=== PATIENT | male | born 1945 | race Caucasian/White ===

== ENCOUNTER 2018-01-18 09:25 | Emergency (ER) | payer MEDICARE ==
--- NOTE | 2018-01-18 09:44 | Emergency Department Record ---
History of Present Illness - General Chief Complaint: Hypertension Stated Complaint: HTN/FEVER Time Seen by Provider: 01/18/18 09:41 Source: Patient, RN notes reviewed Mode of Arrival: Wheelchair - History of Present Illness Initial Comments: fever and frequent urination with a fever last night and shakes last night and he lives alone. No vomiting and slight cough and that was three weeks ago. Onset/Timin -: Days(s) Timing: Unsure Description: Other History of Same: No History of Trauma: No Severity: Mild Improves With: Nothing Worsens With: Nothing - Related Data Home Medications Medication Instructions Recorded Confirmed Last Taken Aspirin [Aspirin EC] 81 mg PO DAILY 01/18/18 01/18/18 Unknown Atenolol 50 mg PO DAILY 01/18/18 01/18/18 Unknown Gemfibrozil [Lopid] 600 mg PO DAILY 01/18/18 01/18/18 Unknown Losartan Potassium 50 mg PO DAILY 01/18/18 01/18/18 Unknown Metformin HCl 500 mg PO DAILY 01/18/18 01/18/18 Unknown Rivaroxaban [Xarelto] 20 mg PO DAILY 01/18/18 01/18/18 Unknown Simvastatin 20 mg PO DAILY 01/18/18 01/18/18 Unknown Previous Rx's Medication Instructions Recorded Ciprofloxacin HCl [Cipro] 500 mg PO Q12HR #20 tablet 01/18/18 Allergies Allergy/AdvReac Type Severity Reaction Status Date / Time No Known Drug Allergies Allergy Verified 01/18/18 09:38 Travel Screening - Travel/Exposure Within Last 30 Days Have you traveled within the last 30 days?: No Review of Systems Reviewed: No additional complaints except as noted below Constitutional: Reports: As per HPI. Denies: Chills, Fever, Malaise, Night sweats, Weakness, Weight change Eyes: Reports: As per HPI. Denies: Eye discharge, Eye pain, Photophobia, Vision change ENT: Reports: As per HPI. Denies: Congestion, Dental pain, Ear pain, Epistaxis , Hearing loss, Throat pain Respiratory: Reports: As per HPI. Denies: Cough, Dyspnea, Hemoptysis, Stridor, Wheezes Cardiovascular: Reports: As per HPI. Denies: Arrhythmia, Chest pain, Dyspnea on exertion, Edema, Murmurs, Orthopnea, Palpitations, Paroxysmal nocturnal dyspnea, Rheumatic Fever, Syncope Endocrine: Reports: As per HPI. Denies: Fatigue, Heat or cold intolerance, Polydipsia, Polyuria Gastrointestinal: Reports: As per HPI. Denies: Abdominal pain, Constipation, Diarrhea, Hematemesis, Hematochezia, Melena, Nausea, Vomiting Genitourinary: Reports: As per HPI. Denies: Dysuria, Frequency, Hematuria, Incontinence, Retention, Testicular pain, Testicular mass, Urgency Musculoskeletal: Reports: As per HPI. Denies: Arthralgia, Back pain, Gout, Joint swelling, Myalgia, Neck pain Skin: Reports: As per HPI. Denies: Bruising, Change in color, Change in hair/ nails, Lesions, Pruritus, Rash Neurological: Reports: As per HPI. Denies: Abnormal gait, Confusion, Headache, Numbness, Paresthesias, Seizure, Tingling, Tremors, Vertigo, Weakness Psychiatric: Reports: As per HPI. Denies: Anxiety, Auditory hallucinations, Depression, Homicidal thoughts, Suicidal thoughts, Visual hallucinations Hematological/Lymphatic: Reports: As per HPI. Denies: Anemia, Blood Clots, Easy bleeding, Easy bruising, Swollen glands Past Medical History - SOCIAL HISTORY Smoking Status: Former smoker Alcohol Use: None Drug Use: None - CARDIOVASCULAR Hx Cardio Disorders: Yes Hx Abnormal EKG: Yes Hx Cardiac Cath: Yes Hx Hypertension: Yes - NEURO Hx Neuro Disorders: No - GI Hx GI Disorders: No - Hx Genitourinary Disorders: No - ENDOCRINE Hx Endocrine Disorders: Yes Hx Diabetes: Yes (type 2) - MUSCULOSKELETAL Hx Musculoskeletal Disorders: Yes Hx Arthritis: Yes - PSYCH Hx Psych Problems: No - HEMATOLOGY/ONCOLOGY Hx Hematology/Oncology Disorders: No Family Medical History Any Significant Family History?: Yes Hx Cancer: Father, Mother Physical Exam - General General Appearance: Alert, Oriented x3, Cooperative, No acute distress - Head Head exam: Normal inspection - Eye Eye exam: Normal appearance, PERRL Pupils: Normal accommodation - ENT ENT exam: Normal exam, Mucous membranes moist, Normal external ear exam, Normal orophraynx, TM's normal bilaterally Ear exam: Normal external inspection. negative: External canal tenderness Nasal Exam: Normal inspection. negative: Discharge, Sinus tenderness Mouth exam: Normal external inspection, Tongue normal Teeth exam: Normal inspection. negative: Dental caries Throat exam: Normal inspection. negative: Tonsillar erythema, Tonsillar exudate - Neck Neck exam: Normal inspection, Full ROM. negative: Tenderness - Respiratory Respiratory exam: Normal lung sounds bilaterally. negative: Respiratory distress - Cardiovascular Cardiovascular Exam: Regular rate, Normal rhythm, Normal heart sounds - GI/Abdominal GI/Abdominal exam: Soft, Normal bowel sounds. negative: Tenderness - Rectal Rectal exam: Deferred - exam: Deferred - Extremities Extremities exam: Normal inspection, Full ROM, Normal capillary refill. negative: Tenderness - Back Back exam: Reports: Normal inspection, Full ROM. Denies: Muscle spasm, Rash noted, Tenderness - Neurological Neurological exam: Alert, Normal gait, Oriented X3, Reflexes normal - Psychiatric Psychiatric exam: Normal affect, Normal mood - Skin Skin exam: Dry, Intact, Normal color, Warm Course Vital Signs 01/18/18 09:27 Temperature 99.3 F Pulse Rate 112 H Respiratory 20 Rate Blood Pressure 132/90 Pulse Ox 96 - Reevaluation(s) Reevaluation #1: 01/18/18 11:35 patient ambulating without problems and denies being dizzy. Reevaluation #2: bladder scan 14 ml 01/18/18 11:39 Medical Decision Making - Lab Data Result diagrams: 01/18/18 10:15 01/18/18 10:15 Disposition Clinical Impression: UTI (urinary tract infection) Qualifiers: Urinary tract infection type: acute cystitis Hematuria presence: without hematuria Qualified Code(s): N30.00 - Acute cystitis without hematuria Disposition: Home, Self-Care Condition: (1) Good Instructions: Urinary Tract Infection in Men (ED) Additional Instructions: follow up with family in 3 days and if worse return to the ED Prescriptions: Ciprofloxacin HCl [Cipro] 500 mg PO Q12HR #20 tablet Forms: Patient Portal Access Time of Disposition: 11:41 Quality - Quality Measures Quality Measures: N/A - Blood Pressure Screening Does Patient Have Any of the Following: No, Active Dx of HTN Blood Pressure Classification: Hypertensive Reading Systolic Measurement: 132 Diastolic Measurement: 90 Screening for High Blood Pressure: Patient Exclusion, Hx of HTN [G9744]
[2018-01-18 09:54] LABS: URINE BILIRUBIN NEGATIVE (NEGATIVE); URINE BLOOD LARGE (NEGATIVE); URINE COLOR YELLOW; URINE GLUCOSE (UA) NEGATIVE (NEGATIVE); URINE KETONE NEGATIVE (NEGATIVE); URINE LEUKOCYTE ESTERASE MODERATE (NEGATIVE); URINE NITRITE POSITIVE (NEGATIVE); URINE PROTEIN TRACE (NEGATIVE)
[2018-01-18 09:56] LABS: URINE APPEARANCE CLOUDY
[2018-01-18 10:02] LABS: URINE BACTERIA 4+
[2018-01-18] MEDS ORDERED: 0.9 % SODIUM CHLORIDE 1000ML 1,000 ML IV ONE (10:05)
[2018-01-18] MEDS ORDERED: CIPROFLOXACIN LACTATE/D5W 400 MG/200 ML BAG IVPB SCH (10:15)
[2018-01-18 10:25] LABS: HEMOGLOBIN 13.2 gm/dl (14.0-18.0); MEAN CELL VOLUME 90.5 fl (81-97); MEAN PLATELET VOLUME 10.3 fl (7.4-10.4); PLATELET COUNT 184 K/uL (130-400); RED BLOOD COUNT 4.42 M/uL (4.40-5.70)
[2018-01-18 10:30] LABS: MEAN CORPUSCULAR HEMOGLOBIN 29.8 pg (27-33)
[2018-01-18 10:37] LABS: BLOOD UREA NITROGEN 15 mg/dL (8-23); CREATININE 0.8 mg/dL (0.7-1.2); EST GLOMERULAR FILTRATION RATE > 60 mL/min; TOTAL PROTEIN 7.3 g/dL (6.6-8.7)
[2018-01-18 10:39] LABS: GLUCOSE,RANDOM 125 mg/dL (74-109)
[2018-01-18 10:42] LABS: ALBUMIN 4.5 g/dL (4.0-5.0); ALKALINE PHOSPHATASE 53 U/L (40-129); ALT/SGPT 6 U/L (<41); AST/SGOT 14 U/L (10.0-50.0); BILIRUBIN,DIRECT 0.2 mg/dL (0-0.3)
[2018-01-18] MEDS ORDERED: KETOROLAC 30 MG/ML VIAL IVP ONE (11:05)
--- NOTE | 2018-01-20 14:40 | RADIOLOGY REPORT ---
EXAM: CHEST 2 VIEWS HISTORY: COUGH AND SHORTNESS OF BREATH FOR A COUPLE OF WEEKS. TECHNIQUE: PA and lateral views of the chest. COMPARISON: None. FINDINGS: Cardiac silhouette is within normal-upper size limits. Thoracic aorta is mildly calcified and tortuous. Pulmonary vasculature is nondilated. No focal consolidation, pleural effusion, or pneumothorax is seen. No definite acute osseous findings. Suggestion of chronic fracture deformity of the mid right clavicle. IMPRESSION: NO DEFINITE ACUTE OSSEOUS FINDINGS. JOB NUMBER: [id number] [facility]
== END 2018-01-18 12:28 | disposition home or self-care (01) ==
LOC: ER 09:25
DX: N30.00 Acute cystitis without hematuria (principal); I10 Essential (primary) hypertension; Z87.891 Personal history of nicotine dependence; E11.9 Type 2 diabetes mellitus without complications
CPT/HCPCS: 99284 ×2; 96365; 96375; 96361; 85730; 80076; 80048; 81001; 85027; 71046; J0744

== ENCOUNTER 2018-02-24 20:14 | Emergency (ER) | payer MEDICARE ==
[2018-02-24] MEDS ORDERED: AMPICILLIN SODIUM/SULBACTAM NA 3 G in 0.9 % SODIUM CHLORIDE 100ML 100 ML IVPB ONE (20:33)
[2018-02-24] MEDS ORDERED: TETANUS AND DIPHTHERIA PF 0.5 ML SYR IM ONE (20:34)
--- NOTE | 2018-02-24 20:40 | Emergency Department Record ---
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 He dropped a terrazzo grinder on his right foot. He was wearing work boots but had a superficial abrasion to the top of his foot. Today he has some mild mid foot redness. No fever. No streaking. He is unsure of when his last tetanus shot was given. He is a diabetic. His new PCP is Dr Peres. Onset/Timin -: Days(s) Location: Other Extremity Location: Right: Foot Place: Home Context: Accidental Associated Symptoms: Pain Treatments Prior to Arrival: Bandage - Ronald Coma Scale Eye Response: (4) Open spontaneously Motor Response: (6) Obeys commands Verbal Response: (5) Oriented Ronald Total: 15 - Related Data Patient Tetanus UTD (within 5 yrs): No Previous Rx's Medication Instructions Recorded Ciprofloxacin HCl [Cipro] 500 mg PO Q12HR #20 tablet 01/18/18 Amoxicillin/Potassium Clav 1 tab PO BID #14 tab 02/24/18 [Augmentin 875-125 Tablet] Allergies Allergy/AdvReac Type Severity Reaction Status Date / Time No Known Drug Allergies Allergy Verified 02/24/18 20:31 Travel Screening - Travel/Exposure Within Last 30 Days Have you traveled within the last 30 days?: No - Travel/Exposure Within Last Year Have you traveled outside the [place] in the last year?: No - Additonal Travel Details Have you been exposed to anyone with a communicable illness?: No - Travel Symptoms Symptom Screening: None Review of Systems Constitutional: Denies: Chills, Fever, Malaise, Weakness Eyes: Denies: Eye discharge ENT: Denies: Congestion, Throat pain Respiratory: Denies: Cough, Dyspnea Cardiovascular: Denies: Chest pain, Edema Endocrine: Denies: Fatigue Gastrointestinal: Denies: Abdominal pain, Diarrhea, Nausea, Vomiting Genitourinary: Denies: Dysuria, Frequency, Hematuria Musculoskeletal: Reports: As per HPI, Arthralgia. Denies: Back pain Skin: Reports: As per HPI, Rash Neurological: Denies: Confusion, Headache, Numbness, Vertigo, Weakness Psychiatric: Denies: Anxiety Hematological/Lymphatic: Denies: Easy bleeding, Easy bruising Past Medical History - SOCIAL HISTORY Smoking Status: Former smoker Alcohol Use: None Drug Use: None - RESPIRATORY Hx Respiratory Disorders: No - CARDIOVASCULAR Hx Cardio Disorders: Yes Hx Abnormal EKG: Yes Hx Cardiac Cath: Yes Hx Hypertension: Yes - NEURO Hx Neuro Disorders: No - GI Hx GI Disorders: No - Hx Genitourinary Disorders: No - ENDOCRINE Hx Endocrine Disorders: Yes Hx Diabetes: Yes (type 2) - MUSCULOSKELETAL Hx Musculoskeletal Disorders: Yes Hx Arthritis: Yes - PSYCH Hx Psych Problems: No - HEMATOLOGY/ONCOLOGY Hx Hematology/Oncology Disorders: No Family Medical History Any Significant Family History?: No Hx Cancer: Father, Mother Physical Exam - General General Appearance: Alert, Oriented x3, Cooperative, No acute distress Limitations: No limitations - Head Head exam: Atraumatic, Normal inspection - Eye Eye exam: Normal appearance. negative: Conjunctival injection - ENT ENT exam: Normal exam Ear exam: Normal external inspection Nasal Exam: Normal inspection Mouth exam: Normal external inspection - Neck Neck exam: Normal inspection - Cardiovascular Peripheral Pulses: 2+: Dorsalis Pedis (R) - Extremities Extremities exam: Full ROM, Normal capillary refill, Pedal edema (very minimal right foot swelling). negative: Normal inspection, Joint swelling, Tenderness Image of Feet: 1 - 2cm superficial abrasion 2 - very mild local erythema and very mild swelling, non tender, no pus from the abrasion - Neurological Neurological exam: Alert, Oriented X3 - Psychiatric Psychiatric exam: Normal affect, Normal mood. negative: Agitated, Anxious - Skin Skin exam: Dry, Erythema, Intact, Warm Course Vital Signs 02/24/18 20:21 Temperature 97.5 F L Pulse Rate [ 86 Pulse Ox Probe] Respiratory 20 Rate Blood Pressure 122/84 [Left Arm] Pulse Ox 99 - Reevaluation(s) Reevaluation #1: The abrasion and foot were cleaned No pus or purulence IV antibiotic dose ordered, tetanus updated, and Rx provided We discussed home care, close follow up and reasons to return to the ED 02/24/18 20:40 02/24/18 21:13 The XR was reviewed STS otherwise negative DC after the IV Disposition Disposition: Discharge Clinical Impression: Foot abrasion, infected, Cellulitis Disposition: Home, Self-Care Condition: (1) Good Instructions: Cellulitis (ED) Additional Instructions: Clean the foot with mild soap and water twice daily Keep the leg elevated to minimize swelling Take the antibiotic twice daily Call Dr Peres tomorrow for a recheck in the next 2 days Return immediately to be seen if worse, fever, pain Prescriptions: Amoxicillin/Potassium Clav [Augmentin 875-125 Tablet] 1 tab PO BID #14 tab Forms: Patient Portal Access Time of Disposition: 20:38 Quality - Quality Measures Quality Measures: N/A - Blood Pressure Screening Does Patient Have Any of the Following: Active Dx of HTN Blood Pressure Classification: Pre-Hypertensive BP Reading Systolic Measurement: 122 Diastolic Measurement: 84 Screening for High Blood Pressure: Patient Exclusion, Hx of HTN [G9744]
[2018-02-24] MEDS ORDERED: AMOXICILLIN/POTASSIUM CLAV 875MG/125MG TABLET PO ONE (21:13)
--- NOTE | 2018-02-25 12:50 | RADIOLOGY REPORT ---
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 TECHNIQUE: Three views of the right foot were obtained. Metallic arrow placed at the site of the laceration on the lateral view. Comparison: None. Encounter: Initial. FINDINGS: Diffuse osteopenia is seen consistent with osteoporosis. Some mild soft tissue swelling is seen along the dorsal aspect of the mid portion of the foot. No definite fracture or dislocation seen. Tiny posterior calcaneal spur. Some vascular calcification particularly posteriorly at the ankle. IMPRESSION: MILD SOFT TISSUE SWELLING. NO DEFINITE FRACTURE OF THE RIGHT FOOT IDENTIFIED. JOB [facility]BER: [id number] [facility]
== END 2018-02-24 21:52 | disposition home or self-care (01) ==
LOC: ER 20:14
DX: S90.811A Abrasion, right foot, initial encounter (principal); L03.115 Cellulitis of right lower limb; E11.9 Type 2 diabetes mellitus without complications; I10 Essential (primary) hypertension; F17.210 Nicotine dependence, cigarettes, uncomplicated; Y92.009 Unspecified place in unspecified non-institutional (private) residence as the place of occurrence of the external cause
CPT/HCPCS: 99284 ×2; 96374; 96372; 73630; J0295

== ENCOUNTER 2018-08-29 09:29 | Day surgery (SDC) | payer MEDICARE ==
[2018-08-29] MEDS ORDERED: LIDOCAINE 2% MDV (20MG/ML) 20ML VIAL IV ONE (09:30)
[2018-08-29] MEDS ORDERED: PROPOFOL 10 MG/ML VIAL IV ONE (09:30)
--- NOTE | 2018-08-30 08:50 | Operative Note ---
OPERATION: COLONOSCOPY with cold snare polypectomy. PREOPERATIVE DIAGNOSIS: Colon cancer screening. POSTOPERATIVE DIAGNOSES: 1. Sessile ascending colon polyp. 2. Colonic diverticulosis. PREPARATION QUALITY: Good. ESTIMATED BLOOD LOSS: Minimum. SPECIMENS: Ascending colon polyp. COMPLICATIONS: None apparent. PROCEDURE: After informed consent was obtained from the patient, he was placed in the left lateral decubitus position in the endoscopy suite, sedated and monitored by the department of anesthesia. Digital rectal exam was unremarkable. A well-lubricated [id number] colonoscope was inserted into the rectum and advanced to the cecum. Preparation quality was good. The cecum and cecal bulb were entered several times and were unremarkable. The ileocecal valve was unremarkable. The appendiceal orifice was unremarkable. The ascending colon revealed a 4-5 mm sessile polyp removed with a cold snare. Minimal bleeding was noted. There were scattered diverticula in the ascending colon. The transverse colon was unremarkable. The descending colon and sigmoid colon demonstrated scattered diverticula as well. No inflammatory or polyps were seen. The rectum was unremarkable in forward and J-turn views. The endoscope was straightened, the rectal ampulla deflated, and the endoscope was removed. RECOMMENDATIONS: The patient should follow a high-fiber diet. Consider the use of a fiber supplement. I would not recommend repeat surveillance colonoscopy based on his age. As always, thank you for allowing me to participate in the healthcare of your patients. CC: DO AMISH Geronimo
== END 2018-08-29 11:20 | disposition home or self-care (01) ==
LOC: HOP 09:29
PROVIDERS: ATTEND Internal Medicine Gastroenterology
DX: Z12.11 Encounter for screening for malignant neoplasm of colon (principal); D12.2 Benign neoplasm of ascending colon; K57.30 Diverticulosis of large intestine without perforation or abscess without bleeding; I10 Essential (primary) hypertension; E11.9 Type 2 diabetes mellitus without complications; E78.00 Pure hypercholesterolemia, unspecified; H40.9 Unspecified glaucoma; Z79.01 Long term (current) use of anticoagulants